=== PATIENT | female | born 1985 | race Caucasian/White ===

== ENCOUNTER 2016-11-25 07:17 | Inpatient (IN) | payer BC ==
--- NOTE | 2016-11-24 21:02 | PCM.LDHP ---
L&D History of Present Illness - General Date of Service: 11/25/16 Admit Problem/Dx: Admission Diagnosis/Problem Admission Diagnosis/Problem 11/24/16 20:43 41-0/7 weeks gestational age, elective induction of labor. Source of Information: Patient History Limitations: Reports: No limitations - History of Present Illness Introduction:: History of present illness: Valencia is a 30-year-old 1 para 0 white female who is admitted for elective induction of labor. She presently is at 41-0 /7 weeks gestational age as determined by a certain last menstrual period which started on 02/12/2016 and was supported by 3 ultrasounds dating 05/09/2016, 07/2016 and 07/29/2016. She is scheduled for Pitocin/artificial rupture membranes induction of labor. Her most recent evaluation in clinic showed her cervix to be 2+ centimeters dilated, 90% effaced, very soft, -3 station and midposition. The procedure, risks, benefits, alternatives of care including an attempt at natural onset of labor and delivery are all discussed in detail with the patient. She appears to understand as does her and they wish to proceed. History: 1 para 0. LESLEE set at 11/18/2016 as described above. Patient had menarche at age 14, cycles q. 28 days. Using control time at conception. Positive hCG was on 03/14/2016. Her course has been relatively unremarkable. First visit was at 12-1/7 weeks gestational age on 05/07/2016. She is made good fundal height growth. Vital signs have been stable throughout the course. Her weight gain has been from 131 pounds up to 150 pounds for a 27 pound weight gain. Baby has been active. early on had a choroid plexus cyst noted but this resolved with time. Her group B strep screen was positive. She desires natural labor but would be accepting of an epidural. She declined genetic evaluation. She was on control for contraception. She had an abnormal one-hour GGT but passed her 3 hour glucose tolerance test. T.dap was given on 09/24/2016. Patient has had some slightly decreased platelet but on last evaluation in clinic on 10/30/2016 they were 170. laboratory testing: Blood is O positive. Antibody screen is negative. platelets at first visit were 195. Pap smear was normal. Rubella titer shows immunity. RPR is nonreactive urine culture was negative. Hepatitis B and HIV assays were negative. Chlamydia and gonorrhea assays negative. One hour GTT was elevated at 136. Three-hour glucose tolerance test showed a fasting glucose of 86, one-hour glucose of 116, 2R glucose of 123, three-hour glucose of 77. Hemoglobin second trimester was borderline at 12.0. patient was started on iron supplementation at that time was 170. Group B strep screen was positive. Follow up platelet count 10/30. Group B strep screen was negative. Allergies: none Medications: 1. vitamins 1 by mouth daily 2. ferrous sulfate 325 mg by mouth daily Past medical history: 1. Acne Past surgical history: Unremarkable Family history : Anesthesia, bleeding, blood clotting problems noted in the family. Review of systems: Skin: Normal HEENT: Normal Cardiovascular: Normal Respiratory: Normal Breasts: Normal GI : normal Musculoskeletal/extremities: Normal Neurological: Normal Physical exam: Pregravid weight 130.2 1. Weight at last visit 158. Height is 5 feet 7. Prepregnancy BMI 20.4. Blood pressure on last evaluation in clinic 107/63. In general the patient is a well-developed, well-nourished pleasant stage distress skin is warm and dry without lesions. HEENT, neck and back within normal limits Lungs are clear, with good breath sounds in all lung [place]. Breast exam deferredPara abdomen is protuberant with fundal height of 39 cm. Cervical exam-2+ centimeters/90%/soft/-3/midposition Extremities and neurological exam within normal limits. H&P Review of Systems - Review of Systems: Review Of Systems: See Below L&D Exam - Exam Exam: See Below Problem List Initiated/Reviewed/Updated: Yes Assessment/Plan Comment:: Assessment: 1. 41-0/7 week intrauterine upon admission for elective induction of labor. 2. Group B strep screen positive. 3. Patient plans to nurse 4. Patient desires natural labor but is accepting of an epidural. 5. Tdap is up-to-date. 6. Last platelet count 10/30/2016 was 170 Plan: 1. Pitocin/artificial rupture membranes induction of labor-procedure, risks, benefits, alternatives of care including allowing natural onset of labor all discussed in detail patient. She appears to understand and wishes to proceed. 2. Group B strep prophylaxis with ampicillin 2 g initially then 1 g every 4 hours thereafter in labor. 3. Epidural when necessary 4. Patient plans to nurse-encourage nursing behavior and diet
[2016-11-25] MEDS ORDERED: Lidocaine 1% 50 ML MDV INJECT PRN (07:58)
[2016-11-25] MEDS ORDERED: Ondansetron 4 MG/2 ML SDV IVPUSH PRN (07:58)
[2016-11-25] MEDS ORDERED: Nalbuphine 20 MG/1 ML Amp IVPUSH PRN (07:58)
[2016-11-25] MEDS ORDERED: Aluminum Hydroxide/Magnesium Hydroxide/Simethicone Susp 30 ML Cup PO PRN (07:58)
[2016-11-25] MEDS ORDERED: Ampicillin 2 GM in Sodium Chloride 0.9% 100 ML IV ONE (08:00)
[2016-11-25] MEDS ORDERED: Oxytocin/Lactated Ringers 10 UNIT/1,000 ML BAG IV SCH ×2 (08:00→08:15)
[2016-11-25] MEDS: Lactated Ringers 1,000 ML IV SCH ×3 (08:25→18:07)
--- NOTE | 2016-11-25 09:44 | PCM.PREANE ---
Preanesthetic Assessment - ANESTHESIA/TRANSFUSION/FAMILY HX Anesthesia/Transfusion History: No Prior Anesthesia, No Prior Transfusion(s) Family History of Anesthesia Reaction: No - REVIEW OF SYSTEMS Constitutional: Reports: no symptoms COUNTRY DIRECTOR: Reports: no symptoms Respiratory: Reports: no symptoms Cardiovascular: Reports: no symptoms GI: Reports: no symptoms - PHYSICAL ASSESSMENT O2 Sat by Pulse Oximetry: 98 RR: 16 Vital Signs: Last Vital Signs Temp 36.2 C 11/25/16 07:58 Pulse 93 11/25/16 07:58 Resp 16 11/25/16 07:58 BP 112/76 11/25/16 07:58 Pulse Ox 98 11/25/16 07:58 Height: 1.7 m Weight: 71.985 kg NPO Status Date: 11/25/16 NPO Status Time: 07:30 ASA Class: 2 Mental Status: alert & oriented x3 Airway Class: Mallampati = 1 Dentition: Reports: normal dentition ROM/Head Extension: full Respiratory Status: lungs clear to auscultation bilaterally Cardiovascular Status: regular rate & rhythm, normal S1, S2, no murmur, blood pressure WNL - LAB Values: Laboratory Last Values WBC 7.34 K/mm3 (3.98-10.04) 11/25/16 08:09 RBC 4.23 M/mm3 (3.98-5.22) 11/25/16 08:09 Hgb 13.1 gm/L (11.2-15.7) 11/25/16 08:09 Hct 37.9 % (34.1-44.9) 11/25/16 08:09 MCV 89.6 fl (79.4-94.8) 11/25/16 08:09 MCH 31.0 pg (25.6-32.2) 11/25/16 08:09 MCHC 34.6 g/dl (32.2-35.5) 11/25/16 08:09 RDW Std Deviation 39.1 fL (36.4-46.3) 11/25/16 08:09 Plt Count 161 K/mm3 (182-369) L 11/25/16 08:09 MPV 11.8 fl (9.4-12.3) 11/25/16 08:09 Neut % (Auto) 71.9 % (34.0-71.1) H 11/25/16 08:09 Lymph % (Auto) 19.2 % (19.3-51.7) L 11/25/16 08:09 [place] % (Auto) 8.0 % (4.7-12.5) 11/25/16 08:09 Eos % (Auto) 0.4 (0.7-5.8) L 11/25/16 08:09 Baso % (Auto) 0.1 % (0.1-1.2) 11/25/16 08:09 Neut # 5.27 K/mm3 (1.56-6.13) 11/25/16 08:09 Lymph # 1.41 K/mm3 (1.18-3.74) 11/25/16 08:09 [place] # 0.59 K/mm3 (0.24-0.36) H 11/25/16 08:09 Eos # 0.03 K/mm3 (0.04-0.36) L 11/25/16 08:09 Baso # 0.01 K/mm3 (0.01-0.08) 11/25/16 08:09 - ALLERGIES Allergies/Adverse Reactions: Allergies Allergy/AdvReac Type Severity Reaction Status Date / Time No Known Allergies Allergy Verified 11/25/16 07:49 - BLOOD Blood Available: Yes Product(s) Available: PRBC - ANESTHESIA PLAN Preop Beta Анна: No Anesthesia Type Planned: epidural - ACKNOWLEDGEMENTS Pt an appropriate candidate for the planned anesthesia: Yes Alternatives and risks of anesthesia discussed w pt/guardian: Yes Pt/Guardian understands and agree with anesthesia plan: Yes PreAnesthesia Questionnaire HEENT History: Reports: None Cardiovascular History: Reports: None Respiratory History: Reports: None Gastrointestinal History: Reports: None Genitourinary History: Reports: None VAULT MECHANIC History: Reports: None Other OB/BYN History: choroid plexus cyst (resolved) Musculoskeletal History: Reports: None Neurological History: Reports: None Psychiatric History: Reports: None Endocrine/Metabolic History: Reports: None Hematologic History: Reports: None, Other (see below) Other Hematologic History: low platelets Immunologic History: Reports: None Oncologic (Cancer) History: Reports: None Dermatologic History: Reports: None, Other (see below) (acne) - Infectious Disease History Infectious Disease History: Reports: None - Past Surgical History Head Surgeries/Procedures: Reports: None - Past Imaging History Past Imaging History: Reports: None - SUBSTANCE USE Smoking Status *Q: Never Smoker Recreational Drug Use History: No - HOME MEDS Home Medications: Home Meds Ferrous Sulfate [Iron] 325 mg PO DAILY 11/25/16 [History] Vit W-Ca,Fe,FA(<1 mg) [ Vitamins] 1 tab PO DAILY 11/25/16 [ History] - CURRENT (IN HOUSE) MEDS Current Meds: Current Medications Al Hydroxide/Mg Hydroxide (Mag-Al Plus) 30 ml PO Q8H PRN PRN Reason: Heartburn Ampicillin Sodium 1 gm/ Sodium (Chloride) 100 mls @ 200 mls/hr IV Q4H JANI Lactated Ringer's (Ringers, Lactated) 1,000 mls @ 100 mls/hr IV ASDIRECTED JANI Last Admin: 11/25/16 08:25 Dose: 100 mls/hr Oxytocin/Lactated Ringer's (Pitocin In Lr 10 Units/1,000 Ml) 10 unit in 1,000 mls @ 500 mls/hr IV ASDIRECTED JANI Oxytocin/Lactated Ringer's (Pitocin In Lr 10 Units/1,000 Ml) 10 unit in 1,000 mls @ 12 mls/hr IV TITRATE JANI; 2 MUNITS/MIN PRN Reason: Protocol Last Admin: 11/25/16 08:33 Dose: 2 munits/min, 12 mls/hr Lidocaine HCl (Xylocaine 1%) 50 ml INJECT ONETIME PRN PRN Reason: perineal pain Nalbuphine HCl (Nubain) 10 mg IVPUSH Q2H PRN PRN Reason: Pain (moderate 4-6) Ondansetron HCl (Zofran) 4 mg IVPUSH Q4H PRN PRN Reason: Nausea/Vomiting Discontinued Medications Ampicillin Sodium 2 gm/ Sodium (Chloride) 100 mls @ 200 mls/hr IV ONETIME ONE Stop: 11/25/16 08:29 Last Admin: 11/25/16 08:26 Dose: 200 mls/hr
[2016-11-25] MEDS ORDERED: diphenhydrAMINE 50 MG/ML SDV IVPUSH PRN (10:31)
[2016-11-25] MEDS ORDERED: ePHEDrine 50 MG/ML SDV IVPUSH PRN (10:31)
[2016-11-25] MEDS ORDERED: fentaNYL 100 MCG/2 ML SDV EPIDUR PRN (10:31)
[2016-11-25] MEDS ORDERED: Bupivacaine/fentaNYL/NS 100 ML Bag EPIDUR SCH (10:45)
[2016-11-25] MEDS: Ampicillin 1 GM in Sodium Chloride 0.9% 100 ML IV SCH ×3 (12:22→21:56)
[2016-11-25] MEDS ORDERED: Methylergonovine 0.2 MG/1 ML Amp IM ONE (21:07)
[2016-11-25] MEDS ORDERED: Methylergonovine 0.2 MG/1 ML Amp ONE (21:18)
[2016-11-25] MEDS ORDERED: Misoprostol 200 MCG Tab ONE ×2 (21:24→21:42)
[2016-11-25] MEDS ORDERED: Methylergonovine 0.2 MG Tab PO SCH (21:30)
[2016-11-25] MEDS ORDERED: Misoprostol 200 MCG Tab PO SCH (21:30)
--- NOTE | 2016-11-25 21:49 | PCM.SN ---
- Free Text/Narrative Note: Valencia is a 30-year-old 1 now para 1001 white female who was admitted on the morning of 11/25/2016 for elective Pitocin/artificial rupture membranes induction of labor. She is 41-0/7 weeks gestational age. Procedure, risks benefits, medications, alternatives of care discussed in detail patient. She appears to understand and wish to proceed. She initially had B. strep prophylactic antibiotics in the form of ampicillin 2 g initially then 1 g IV every 4 hours for the first 2 doses and thereafter. Pitocin was started IV approximately 800 hours. This continued until 1230 hours when patient artificial rupture membranes. She progressed to complete cervical dilation. She delivered a viable, single 10, female in a left occiput anterior position at 2107 hours. The baby had Apgars of 9 and 9, at weight of 3700 grams ( 8 pounds 3 Ounces). The patient had a history laceration and a right labia majora laceration which repaired with 3-0 Monocryl suture in interrupted fashion. Patient had significant bleeding postop day which was felt to be due to uterine atony. She was treated with Pitocin IV, Methergine 0.2 mg IM and Cytotec 400 mcg orally. With this the bleeding slowed. Smear blood loss was 1000 cc. Patient plans to nurse. Condition good.
[2016-11-26] MEDS ORDERED: Lanolin 100% Cream 7 GM Tube TOP PRN (00:39)
[2016-11-26] MEDS ORDERED: Witch Hazel Medicated Pads 100/Jar TOP PRN (00:39)
[2016-11-26] MEDS ORDERED: Acetaminophen 325 MG Tab PO PRN (00:39)
[2016-11-26] MEDS ORDERED: Misoprostol 200 MCG Tab PO PRN (00:39)
[2016-11-26] MEDS ORDERED: Benzocaine/Menthol 20%-0.5% Spray 56 GM Canister TOP PRN (00:39)
[2016-11-26] MEDS: Ibuprofen 600 MG Tab PO PRN ×4 (01:32→20:15)
[2016-11-26] MEDS: Methylergonovine 0.2 MG Tab PO SCH ×3 (01:34→08:53)
[2016-11-26] MEDS: Ampicillin 1 GM in Sodium Chloride 0.9% 100 ML IV SCH (05:10)
--- NOTE | 2016-11-26 07:41 | PCM48HPAN ---
Post Anesthesia Note - EVALUATION WITHIN 48HRS OF ANESTHETIC Vital Signs in Normal Range: Yes Patient Participated in Evaluation: Yes Respiratory Function Stable: Yes Airway Patent: Yes Cardiovascular Function Stable: Yes Hydration Status Stable: Yes Pain Control Satisfactory: Yes Nausea and Vomiting Control Satisfactory: Yes (had nausea and vomiting before epidural placed, and after epidural placed, ) Mental Status Recovered: Yes - COMMENTS/OBSERVATIONS Free Text/Narrative:: Nausea resolved after delivery . Patient happy with epidural experience.
--- NOTE | 2016-11-26 09:37 | PCM.SN ---
- Free Text/Narrative Note: Patient feels good this AM. Has showered. Minimal lochia. Voiding well. Ambulating well. Afeb, VSS Abdomen-soft, NT, uterus at Umb -3. Legs NT Hb 8.9, WBC 16+ A/P: PP day one, anemia secondary to EBL after delivery. Doing well clinically. Repeat CBC in am.
[2016-11-27] MEDS: Ibuprofen 600 MG Tab PO PRN ×2 (00:23→04:18)
--- NOTE | 2016-11-27 10:03 | PCM.DCSUM1 ---
Discharge Summary - Hospital Course Free Text/Narrative:: Valencia is a 30-year-old 1 now para 1001 white female who was admitted on the morning of 11/25/2016 for elective Pitocin/artificial rupture membranes induction of labor. She is 41-0/7 weeks gestational age. Procedure, risks benefits, medications, alternatives of care discussed in detail patient. She appears to understand and wish to proceed. She initially had B. strep prophylactic antibiotics in the form of ampicillin 2 g initially then 1 g IV every 4 hours for the first 2 doses and thereafter. Pitocin was started IV approximately 800 hours. This continued until 1230 hours when patient artificial rupture membranes. She progressed to complete cervical dilation. She delivered a viable, single 10, female in a left occiput anterior position at 2107 hours. The baby had Apgars of 9 and 9, at weight of 3700 grams ( 8 pounds 3 Ounces). The patient had a history laceration and a right labia majora laceration which repaired with 3-0 Monocryl suture in interrupted fashion. Patient had significant bleeding postop day which was felt to be due to uterine atony. She was treated with Pitocin IV, Methergine 0.2 mg IM and Cytotec 400 mcg orally. With this the bleeding slowed. Smear blood loss was 1000 cc. Patient plans to nurse. patient has done very well. Her hemoglobin did drop to 7.9 and then to 7.0. Her white count went from 16 down to 9. She's doing well clinically. She is ambulating well, feels fine. Has minimal lochia. Is nursing without problems. She desires discharge. - Discharge Data Discharge Date: 11/27/16 Discharge Disposition: DC/Tfer to Inpt Rehab Fac 62 Condition: Good - Patient Instructions Diet: Regular Diet as Tolerated (Nursing diet was increased calcium and calories as directed. Increased iron because of the anemia.) Activity: As Tolerated (No intercourse or tampons until bleeding resolves.) Driving: May Drive Today Showering/Bathing: May Shower (May take a bath) Notify Provider of: Fever, Increased Pain, Swelling and Redness, Nausea and/or Vomiting - Discharge Plan Home Medications: Home Meds Vit W-Ca,Fe,FA(<1 mg) [ Vitamins] 1 tab PO DAILY 11/25/16 [ History] Ferrous Sulfate [Iron] 325 mg PO TID #100 11/27/16 [Rx] Ibuprofen [IJD: Ibuprofen] 600 mg PO Q4H PRN #30 tablet 11/27/16 [Rx] Referrals: Patrick Sahu MD [Primary Care Provider] - (Return to clinic-Dr. Sahu-6 weeks-[facility] - Discharge Summary/Plan Comment DC Time >30 min.: No Discharge Summary/Plan Comment: Discharge instructions: 1. Discharge 2. Regular, high fiber, high iron nursing diet was increased calcium, calories and iron. Activity and followup discussed in detail patient. Especially discussed is possible need for limitations of activity because of anemia. She is asked to push fluids at least initially. 3. Precautions given concern increased pain, bleeding, temperature, sign/ symptoms of DVT/PE, signs of worsening anemia. 4. Medications medication as printed, and discussed with and given to the patient. 5. Return to clinic-Dr. Sahu-6 weeks-[facility]. Diagnosis: 1. 41-0/7 week intrauterine -delivered 2. Post hemorrhage with resultant acute blood loss anemia Condition: Good - Patient Data Vitals - Most Recent: Last Vital Signs Temp 36.6 C 11/27/16 07:49 Pulse 85 11/27/16 07:49 Resp 16 11/27/16 07:49 BP 102/66 11/27/16 07:49 Pulse Ox 99 11/27/16 07:49 Weight - Most Recent: 71.985 kg I&O - Last 24 hours: Intake & Output 11/26/16 11/27/16 11/27/16 22:59 06:59 14:59 Intake Total 360 Balance 360 Lab Results - Last 24 hrs: Laboratory Results - last 24 hr 11/27/16 Range/Units 06:47 WBC 9.14 (3.98-10.04) K/mm3 RBC 2.25 L (3.98-5.22) M/mm3 Hgb 7.0 L* (11.2-15.7) gm/L Hct 21.1 L (34.1-44.9) % MCV 93.8 (79.4-94.8) fl MCH 31.1 (25.6-32.2) pg MCHC 33.2 (32.2-35.5) g/dl RDW Std Deviation 39.5 (36.4-46.3) fL Plt Count 132 L (182-369) K/mm3 MPV 11.1 (9.4-12.3) fl Neut % (Auto) 75.6 H (34.0-71.1) % Lymph % (Auto) 16.3 L (19.3-51.7) % [place] % (Auto) 7.2 (4.7-12.5) % Eos % (Auto) 0.3 L (0.7-5.8) Baso % (Auto) 0.1 (0.1-1.2) % Neut # 6.90 H (1.56-6.13) K/mm3 Lymph # 1.49 (1.18-3.74) K/mm3 [place] # 0.66 H (0.24-0.36) K/mm3 Eos # 0.03 L (0.04-0.36) K/mm3 Baso # 0.01 (0.01-0.08) K/mm3 Manual Slide Review Abnormal smear Med Orders - Current: Current Medications Acetaminophen (Tylenol) 650 mg PO Q4H PRN PRN Reason: mild pain or fever Benzocaine/Menthol (Dermoplast Pain Relief [place]) 0 gm TOP ASDIRECTED PRN PRN Reason: Perineal Comfort Measure Last Admin: 11/26/16 01:35 Dose: 1 applic Emollient Ointment (Lansinoh Hpa) 0 gm TOP ASDIRECTED PRN PRN Reason: Sore Nipples Last Admin: 11/26/16 05:24 Dose: 1 tube Ibuprofen (Motrin) 600 mg PO Q4H PRN PRN Reason: Mild pain or fever Last Admin: 11/27/16 04:18 Dose: 600 mg Misoprostol (Cytotec) 400 mcg PO Q4H PRN PRN Reason: excessive vaginal bleeding Witch Sophie (Tucks) 1 pad TOP ASDIRECTED PRN PRN Reason: Hemorrhoid pain Last Admin: 11/26/16 01:34 Dose: 1 applic Discontinued Medications Al Hydroxide/Mg Hydroxide (Mag-Al Plus) 30 ml PO Q8H PRN PRN Reason: Heartburn Diphenhydramine HCl (Benadryl) 25 mg IVPUSH Q6H PRN PRN Reason: pruritis Ephedrine Sulfate (Ephedrine Sulfate) 5 mg IVPUSH ASDIRECTED PRN PRN Reason: Hypotension Fentanyl (Sublimaze) 100 mcg EPIDUR Q3H PRN PRN Reason: Pain Last Admin: 11/25/16 15:24 Dose: 100 mcg Fentanyl/Bupivacaine HCl (Fentanyl/Bupivacaine/Ns 2 Mcg-0.125% 100 Ml) 100 ml EPIDUR ASDIRECTED [facility] Last Admin: 11/25/16 15:25 Dose: 100 ml Ampicillin Sodium 2 gm/ Sodium (Chloride) 100 mls @ 200 mls/hr IV ONETIME ONE Stop: 11/25/16 08:29 Last Admin: 11/25/16 08:26 Dose: 200 mls/hr Ampicillin Sodium 1 gm/ Sodium (Chloride) 100 mls @ 200 mls/hr IV Q4H [facility] Last Admin: 11/26/16 05:10 Dose: Not Given Lactated Ringer's (Ringers, Lactated) 1,000 mls @ 100 mls/hr IV ASDIRECTED [facility] Last Admin: 11/25/16 18:07 Dose: 100 mls/hr Oxytocin/Lactated Ringer's (Pitocin In Lr 10 Units/1,000 Ml) 10 unit in 1,000 mls @ 500 mls/hr IV ASDIRECTED [facility] Last Admin: 11/25/16 21:07 Dose: 500 mls/hr Oxytocin/Lactated Ringer's (Pitocin In Lr 10 Units/1,000 Ml) 10 unit in 1,000 mls @ 12 mls/hr IV TITRATE JANI; 2 MUNITS/MIN PRN Reason: Protocol Last Titration: 11/25/16 21:00 Dose: 10 munits/min, 60 mls/hr Lidocaine HCl (Xylocaine 1%) 50 ml INJECT ONETIME PRN PRN Reason: perineal pain Methylergonovine Maleate (Methergine) Confirm Administered Dose 0.2 mg .ROUTE .STK-MED ONE Stop: 11/25/16 21:19 Last Admin: 11/25/16 22:35 Dose: Not Given Methylergonovine Maleate (Methergine) 0.2 mg IM ONETIME ONE Stop: 11/25/16 21:08 Last Admin: 11/25/16 22:34 Dose: 0.2 mg Methylergonovine Maleate (Methergine) 400 mg PO Q4HR [facility] Stop: 11/26/16 09:00 Last Admin: 11/26/16 00:46 Dose: Not Given Methylergonovine Maleate (Methergine) 0.4 mg PO Q4HR [facility] Stop: 11/26/16 09:00 Last Admin: 11/26/16 08:53 Dose: 0.4 mg Misoprostol (Cytotec) Confirm Administered Dose 200 mcg .ROUTE .STK-MED ONE Stop: 11/25/16 21:25 Last Admin: 11/25/16 22:35 Dose: Not Given Misoprostol (Cytotec) Confirm Administered Dose 400 mcg .ROUTE .STK-MED ONE Stop: 11/25/16 21:43 Last Admin: 11/25/16 22:38 Dose: Not Given Misoprostol (Cytotec) 200 mcg PO Q4HR [facility] Stop: 11/26/16 09:00 Last Admin: 11/25/16 22:35 Dose: 200 mcg Nalbuphine HCl (Nubain) 10 mg IVPUSH Q2H PRN PRN Reason: Pain (moderate 4-6) Ondansetron HCl (Zofran) 4 mg IVPUSH Q4H PRN PRN Reason: Nausea/Vomiting Last Admin: 11/26/16 00:00 Dose: 4 mg *Q Meaningful Use (DIS) - VTE *Q VTE Criteria *Q: - Stroke *Q Stroke Criteria *Q: - AMI *Q AMI Criteria *Q:
[2016-11-27 12:17] VITALS: BP 102/64
== END 2016-11-27 14:05 | DRG 560 ==
LOC: JD.OB 07:17 → OBSVTOIN 21:07 → JD.OB 21:07
PROVIDERS: ADMIT Obstetrics & Gynecology; ATTEND Obstetrics & Gynecology
PROC: 10E0XZZ Delivery of Products of Conception, External Approach (ICD-10-PCS; principal; 2016-11-25)
PROC: 0UQMXZZ Repair Vulva, External Approach (ICD-10-PCS; 2016-11-25)
PROC: 10907ZC Drainage of Amniotic Fluid, Therapeutic from Products of Conception, Via Natural or Artificial Opening (ICD-10-PCS; 2016-11-25)
PROC: 00HU33Z Insertion of Infusion Device into Spinal Canal, Percutaneous Approach (ICD-10-PCS; 2016-11-25)
PROC: 3E0R3CZ (ICD-10-PCS; 2016-11-25)
DX: O99.824 Streptococcus B carrier state complicating childbirth (principal); Z3A.41 41 weeks gestation of pregnancy; Z37.0 Single live birth; O70.0 First degree perineal laceration during delivery
CPT/HCPCS: 01967; 36415; 85025; 85027; A9270-GY; J0290; J2210; J2405; J2590; J3010; J7030; J7120

== ENCOUNTER 2019-10-31 18:29 | Inpatient (IN) | payer BC ==
--- NOTE | 2019-10-31 20:49 | PCM.LDHP ---
L&D History of Present Illness - General Date of Service: 11/01/19 Admit Problem/Dx: Admission Diagnosis/Problem Admission Diagnosis/Problem 10/31/19 20:40 Valencia is a 33-year-old 2 para 1001 white female who is to be admitted on the a.m. of 11/01/2019 at 39-6/7 weeks gestational age with an LESLEE of 2019 for elective induction of labor. Source of Information: Patient History Limitations: Reports: No Limitations - History of Present Illness Introduction:: Valencia is a 33-year-old 2 para 1001 white female who is to be admitted on the a.m. of 11/01/2019 at 39-6/7 weeks gestational age with an LESLEE of 2019 for elective induction of labor.Injure of labor, its risks, benefits and alternatives including allowing for natural onset of labor all discussed with patient. She appears to understand and wishes to proceed. ENVIRONMENTAL CONFLICT MANAGER history: Patient is a 2 para 1001 her LESLEE of 11/02/2019 was set by an uncertain last menstrual starting 01/26/2019 but supported by an early ultrasound done 07/12/2019. Patient had menarche at age 14, cycles occurred every 28 days. LMP 01/26/2019 was uncertain. Her past obstetric history includes the followin. Female born 11/25/2015 at 41 weeks gestational age after 14 hours of labor. Patient had a normal spontaneous vaginal delivery. She is not epidural for labor and analgesia. Child's name is Zhanna Lew course: Patient was seen in our clinic for the first time on 06/08/2019 at 19 weeks gestational age. She was seen on a very regular basis since that time. Her pregravid weight was reported as 143 pounds. At the end of the she was 165 pounds for a 22 pound weight gain. She desires an epidural in labor and delivery. She is group B strep negative. Her [place] depression screening score on 06/08/2019 was 2/30. Patient has a history of uterine atony with her last . She plans to breast -feed. She has a history of thrombocytopenia. This however was not within during the course of her care. Laboratory testing and shows her first labs 2 positive blood with negative MRI screening. Hemoglobin at that first visit was 12.2 g/dL. Platelets are 185,000. She is rubella immune. Urine culture was negative after 2 days. Second trimester laboratory testing showed a hemoglobin 11.7 g/dL at which time she was started on ferrous sulfate 325 mg by mouth daily. Labs at that time were 186,000 and her 1 hour GTT was 99. The strep screen is negative. RPR done 08/04/2019 was nonreactive. Allergies: None Medications: 1. vitamins daily 2. Ferrous sulfate 325 mg daily. Past medical history: 1. Normal spontaneous vaginal delivery 11/25/2016. 2. Acne Past surgical history: Unremarkable Family history: There appears to be no family history for any bleeding, blood clotting, anesthesia, related problems. Social history patient is . is Jorge Marie. She lives in [place], [place]. She does not use any significant loss of alcohol, drugs or tobacco. Review of systems: In general patient has no complaints. Baby has been active. Skin: Negative Lungs: No infectious symptoms or shortness of breath Cardiovascular: No chest pain or exercise intolerance Breasts: No lumps, changes in size, pain, dimpling, discharge or axillary or supraclavicular concerns. GI: Negative : Some contractions or being noted. Musculoskeletal: Negative Neurological: Negative In general the patient is well-developed, well-nourished, pleasant female of stated age in no acute distress. On last evaluation in clinic her blood pressure was 108/70. Weight was 165 pounds. Pregravid weight was reported at 143 pounds. Height is 5 feet 7 inches. Prepregnancy body mass index is 20.7. heart rate was 128. Skin is warm dry without lesions. HEENT, neck and back within normal limits. Lungs are clear with good breath sounds in all lung [place]. Cardiovascular exam shows regular and rhythm without murmurs. Breasts exam is deferred having been done at first visit found to be normal. Patient does plan to breast-feed. Abdomen is gravid. Baby is in a vertex presentation. Genital digital exam on last evaluation clinic3 cm, 80% effaced, very soft, mid position, -3.. Extremities and neurological exam are grossly within normal limits. - Related Data Allergies/Adverse Reactions: Allergies Allergy/AdvReac Type Severity Reaction Status Date / Time No Known Allergies Allergy Verified 11/25/16 07:49 Home Medications: Home Meds Vit Calc,Iron,Folic [ Vitamins] 1 tab PO DAILY 11/25/16 [ History] Ferrous Sulfate [Iron] 325 mg PO TID #100 11/27/16 [Rx] Ibuprofen [IJD: Ibuprofen] 600 mg PO Q4H PRN #30 tablet 11/27/16 [Rx] Past Medical History HEENT History: Reports: None Cardiovascular History: Reports: None Respiratory History: Reports: None Gastrointestinal History: Reports: None Genitourinary History: Reports: None ENVIRONMENTAL CONFLICT MANAGER History: Reports: None Other OB/BYN History: choroid plexus cyst (resolved) Musculoskeletal History: Reports: None Neurological History: Reports: None Psychiatric History: Reports: None Endocrine/Metabolic History: Reports: None Hematologic History: Reports: None, Other (See Below) Other Hematologic History: low platelets Immunologic History: Reports: None Oncologic (Cancer) History: Reports: None Dermatologic History: Reports: None, Other (See Below) - Infectious Disease History Infectious Disease History: Reports: None - Past Surgical History Head Surgeries/Procedures: Reports: None - Past Imaging History Past Imaging History: Reports: None Social & Family History - Family History Family Medical History: Noncontributory - Caffeine Use Caffeine Use: Reports: Coffee H&P Review of Systems - Review of Systems: Review Of Systems: See Below L&D Exam - Exam Exam: See Below Problem List Initiated/Reviewed/Updated: Yes Assessment/Plan Comment:: 1. 39-6/7 week intrauterine upon admission for elective induction of labor. 2. Risk factors for the include group B strep negative status history of uterine atony. 3. Patient desires epidural in labor for analgesia 4. Patient plans to breast-feed 5. Influenza vaccine given 07/04/2019 6. T dap given on 08/30/2019 7. Patient is rubella immune. Plan: 1. Artificial rupture membranes induction with possible Pitocin augmentation. Discussed with patient and improved. 2. Epidural for pain control. 3. Support breast-feeding decision 4. RPR and CBC upon admission
[2019-11-01] MEDS ORDERED: Bupivacaine 0.25% 10 ML SDV ONE
[2019-11-01] MEDS ORDERED: Sodium Chloride 0.9% 10 ML Syringe FLUSH PRN (07:48)
[2019-11-01] MEDS ORDERED: Ondansetron 4 MG/2 ML SDV IVPUSH PRN (07:48)
[2019-11-01] MEDS ORDERED: Oxytocin/Lactated Ringers 10 UNIT/1,000 ML BAG IV SCH ×2 (08:00→14:30)
[2019-11-01] MEDS ORDERED: ePHEDrine 50 MG/ML SDV IVPUSH PRN (09:31)
[2019-11-01] MEDS ORDERED: Bupivacaine/fentaNYL/NS 100 ML Bag EPIDUR PRN (09:31)
[2019-11-01] MEDS ORDERED: fentaNYL 100 MCG/2 ML SDV EPIDUR PRN (09:31)
[2019-11-01] MEDS ORDERED: diphenhydrAMINE 50 MG/ML SDV IVPUSH PRN (09:31)
--- NOTE | 2019-11-01 13:15 | PCM.PREANE ---
Preanesthetic Assessment - Procedure Proposed Procedure: prem - Anesthesia/Transfusion/Family Hx Anesthesia History: No Prior Anesthesia Family History of Anesthesia Reaction: No Transfusion History: No Prior Transfusion(s) - Review of Systems General: No Symptoms Pulmonary: No Symptoms Cardiovascular: No Symptoms Gastrointestinal: No Symptoms Neurological: No Symptoms Other: Reports: None - Physical Assessment Vital Signs: Last Vital Signs Temp 97.9 F 11/01/19 11:00 Pulse 71 11/01/19 11:00 Resp 18 11/01/19 11:00 BP 105/65 11/01/19 11:00 Pulse Ox 100 11/01/19 11:00 Height: 5 ft 7 in Weight: 75.614 kg ASA Class: 2 Mental Status: Alert & Oriented x3 Airway Class: Mallampati = 1 Dentition: Reports: Normal Dentition Thyro-Mental Finger Breadths: 3 Mouth Opening Finger Breadths: 3 ROM/Head Extension: Full Lungs: Clear to Auscultation, Normal Respiratory Effort Cardiovascular: Regular Rate, Regular Rhythm, No Murmurs - Lab Values: Laboratory Last Values WBC 8.78 K/mm3 (3.98-10.04) 11/01/19 08:00 RBC 3.92 M/mm3 (3.98-5.22) L 11/01/19 08:00 Hgb 12.0 gm/dl (11.2-15.7) 11/01/19 08:00 Hct 35.8 % (34.1-44.9) 11/01/19 08:00 MCV 91.3 fl (79.4-94.8) 11/01/19 08:00 MCH 30.6 pg (25.6-32.2) 11/01/19 08:00 MCHC 33.5 g/dl (32.2-35.5) 11/01/19 08:00 RDW Std Deviation 39.8 fL (36.4-46.3) 11/01/19 08:00 Plt Count 158 K/mm3 (182-369) L 11/01/19 08:00 MPV 11.8 fl (9.4-12.3) 11/01/19 08:00 Neut % (Auto) 77.0 % (34.0-71.1) H 11/01/19 08:00 Lymph % (Auto) 13.7 % (19.3-51.7) L 11/01/19 08:00 [place] % (Auto) 8.4 % (4.7-12.5) 11/01/19 08:00 Eos % (Auto) 0.5 (0.7-5.8) L 11/01/19 08:00 Baso % (Auto) 0.1 % (0.1-1.2) 11/01/19 08:00 Neut # (Auto) 6.76 K/mm3 (1.56-6.13) H 11/01/19 08:00 Lymph # (Auto) 1.20 K/mm3 (1.18-3.74) 11/01/19 08:00 [place] # (Auto) 0.74 K/mm3 (0.24-0.36) H 11/01/19 08:00 Eos # (Auto) 0.04 K/mm3 (0.04-0.36) 11/01/19 08:00 Baso # (Auto) 0.01 K/mm3 (0.01-0.08) 11/01/19 08:00 - Allergies Allergies/Adverse Reactions: Allergies Allergy/AdvReac Type Severity Reaction Status Date / Time No Known Allergies Allergy Verified 11/01/19 07:48 - Blood Blood Available: No - Acknowledgements Anesthesia Type Planned: Epidural Pt an Appropriate Candidate for the Planned Anesthesia: Yes Alternatives and Risks of Anesthesia Discussed w Pt/Guardian: Yes Pt/Guardian Understands and Agrees with Anesthesia Plan: Yes PreAnesthesia Questionnaire HEENT History: Reports: None Cardiovascular History: Reports: None Respiratory History: Reports: None Gastrointestinal History: Reports: None Genitourinary History: Reports: None DICE TABLE PERSON History: Reports: None : 2 (40 weeks) Para: 1 Other OB/BYN History: choroid plexus cyst (resolved) Musculoskeletal History: Reports: None Neurological History: Reports: None Psychiatric History: Reports: None Endocrine/Metabolic History: Reports: None Hematologic History: Reports: None, Other (See Below) Other Hematologic History: low platelets Immunologic History: Reports: None Oncologic (Cancer) History: Reports: None Dermatologic History: Reports: Other (See Below) - Infectious Disease History Infectious Disease History: Reports: None - Past Surgical History Head Surgeries/Procedures: Reports: None - Past Imaging History Past Imaging History: Reports: None - SUBSTANCE USE Smoking Status *Q: Never Smoker Tobacco Use Within Last Twelve Months: No Second Hand Smoke Exposure: No Days Per Week of Alcohol Use: 0 Recreational Drug Use History: No - HOME MEDS Home Medications: Home Meds Vit Calc,Iron,Folic [ Vitamins] 1 tab PO DAILY 11/25/16 [ History] Ferrous Sulfate [Iron] 325 mg PO TID #100 11/27/16 [Rx] Ibuprofen [IJD: Ibuprofen] 600 mg PO Q4H PRN #30 tablet 11/27/16 [Rx] - CURRENT (IN HOUSE) MEDS Current Meds: Current Medications Diphenhydramine HCl (Benadryl) 25 mg IVPUSH Q6H PRN PRN Reason: pruritis Ephedrine Sulfate (Ephedrine Sulfate) 5 mg IVPUSH ASDIRECTED PRN PRN Reason: Hypotension Fentanyl (Sublimaze) 100 mcg EPIDUR Q3H PRN PRN Reason: Pain Fentanyl/Bupivacaine HCl (Fentanyl/Bupivacaine/Ns 2 Mcg-0.125% 100 Ml) 100 ml EPIDUR ASDIRECTED PRN PRN Reason: Pain Lactated Ringer's (Ringers, Lactated) 1,000 mls @ 100 mls/hr IV ASDIRECTED JANI Oxytocin/Lactated Ringer's (Pitocin In Lr 10 Units/1,000 Ml) 10 unit in 1,000 mls @ 500 mls/hr IV .CONTINUOUS JANI Ondansetron HCl (Zofran) 4 mg IVPUSH Q4H PRN PRN Reason: Nausea/Vomiting Sodium Chloride (Saline Flush) 10 ml FLUSH ASDIRECTED PRN PRN Reason: Keep Vein Open
[2019-11-01] MEDS: Lactated Ringers 1,000 ML IV SCH ×2 (14:45→16:50)
[2019-11-01] MEDS ORDERED: Benzocaine/Menthol 20%-0.5% Spray 56 GM Canister TOP PRN (17:59)
--- NOTE | 2019-11-01 18:05 | PCM.SN ---
- Free Text/Narrative Note: Delivery note: Valencia is a 33-year-old 2 para 1001 white female who is to be admitted on the a.m. of 11/01/2019 at 39-6/7 weeks gestational age with an LESLEE of 2019 for elective induction of labor. She is induced with artificial rupture membranes with resultant clear amniotic fluid. She progressed rapidly through labor. She underwent epidural for labor and analgesia. At approximately 1735 hours patient was found to be completely dilated. Patient pushed 1 contraction and delivered a viable, dotson, male infant with Apgars of 8 and 9, a weight of 3470 g (7 pounds 10.4 ounces), a length of 21.0 inches in a left occiput anterior position at 1738 hrs. on 11/01/2019.. The baby was placed on mom's abdomen. Cord was allowed to pulsate times approximately 2 minutes and then was clamped 2 and cut by the baby's father Jorge. After the baby was delivered IV Pitocin was run at a rate of 500 mL an hour to facilitate increase in uterine tone and decrease likelihood of bleeding. Cord was obtained. The umbilical cord had 3 vessels within it. The placenta then delivered in a [place] presentation, appeared intact and complete and was discarded per patient desire. The perineum was intact and no suturing was required. The patient plans to breast-feed. Estimated blood loss was 200 mL. Condition: Good.
[2019-11-01] MEDS ORDERED: Docusate Sodium 100 MG Cap PO PRN (18:51)
[2019-11-01] MEDS ORDERED: Acetaminophen 325 MG Tab PO PRN (18:51)
[2019-11-01] MEDS: Ibuprofen 600 MG Tab PO PRN (21:42)
[2019-11-01] MEDS: Witch Hazel Medicated Pads 40/Jar TOP PRN (21:43)
[2019-11-02] MEDS: Ibuprofen 600 MG Tab PO PRN ×2 (08:50→14:43)
--- NOTE | 2019-11-02 09:29 | PCM.DCSUM1 ---
Discharge Summary - Hospital Course Free Text/Narrative:: Valencia is a 33-year-old 2 para 1001 white female who is to be admitted on the a.m. of 11/01/2019 at 39-6/7 weeks gestational age with an LESLEE of 2019 for elective induction of labor. She is induced with artificial rupture membranes with resultant clear amniotic fluid. She progressed rapidly through labor. She underwent epidural for labor and analgesia. At approximately 1735 hours patient was found to be completely dilated. Patient pushed 1 contraction and delivered a viable, dotson, male infant with Apgars of 8 and 9, a weight of 3470 g (7 pounds 10.4 ounces), a length of 21.0 inches in a left occiput anterior position at 1738 hrs. on 11/01/2019.. The baby was placed on mom's abdomen. Cord was allowed to pulsate times approximately 2 minutes and then was clamped 2 and cut by the baby's father Jorge. After the baby was delivered IV Pitocin was run at a rate of 500 mL an hour to facilitate increase in uterine tone and decrease likelihood of bleeding. Cord was obtained. The umbilical cord had 3 vessels within it. The placenta then delivered in a [place] presentation, appeared intact and complete and was discarded per patient desire. The perineum was intact and no suturing was required. The patient plans to breast-feed. Estimated blood loss was 200 mL. patient is done well. She is not having any significant bleeding. She has more cramps and with her first delivery. She is taking ibuprofen for this. She is voiding well and is amblyopic without concerns. She desires discharge home. Condition: Good. Diagnosis: Stroke: No - Discharge Data Discharge Date: 11/02/19 Discharge Disposition: Home, Self-Care 01 Condition: Good - Referral to Home Health Primary Care Physician: Patrick Sahu MD - Patient Instructions Diet: Regular Diet as Tolerated (Nursing times increase calories calcium as recommended) Activity: As Tolerated (No intercourse or tampons until bleeding resolves) Driving: May Drive Today Showering/Bathing: May Shower (May take a bath) Notify Provider of: Fever, Increased Pain, Swelling and Redness, Nausea and/or Vomiting - Discharge Plan Home Medications: Home Meds Vit Calc,Iron,Folic [ Vitamins] 1 tab PO DAILY 11/25/16 [ History] Ferrous Sulfate [Iron] 325 mg PO TID #100 11/27/16 [Rx] Ibuprofen [IJD: Ibuprofen] 600 mg PO Q4H PRN #30 tablet 11/27/16 [Rx] Acetaminophen [Tylenol] 650 mg PO Q4H PRN tablet 11/02/19 [Rx] Ibuprofen [Motrin] 600 mg PO Q4H PRN tablet 11/02/19 [Rx] Referrals: Patrick Sahu MD [Primary Care Provider] - (Return to clinicDr. Luis Alberto gregorio, nurse practitioner in 2-3 weeks.) - Discharge Summary/Plan Comment DC Time >30 min.: No Discharge Summary/Plan Comment: Discharge instructions: 1. Discharge home 2. Diet, activity and follow-up discussed with patient. Recommend nursing diet with increased calories and calcium. 3. Precautions given concern increased pain, bleeding, temperature, signs/ symptoms of DVT/PE. 4. Medications per home medication was printed, discussed with and given to the patient. 5. Return to clinic-Dr. Sahu or [facility] Diagnosis: Term -delivered Condition: Good - Patient Data Vitals - Most Recent: Last Vital Signs Temp 36.8 C 11/02/19 03:32 Pulse 94 11/02/19 08:46 Resp 16 11/02/19 08:46 BP 111/78 11/02/19 08:46 Pulse Ox 100 11/02/19 08:46 Weight - Most Recent: 75.614 kg I&O - Last 24 hours: Intake & Output 11/01/19 11/02/19 11/02/19 22:59 06:59 14:59 Intake Total 2150 1000 Output Total 35 Balance 2115 1000 Lab Results - Last 24 hrs: Laboratory Results - last 24 hr 11/01/19 11/01/19 Range/Units 08:00 08:00 RPR Non-reactive (NONREACTIVE) Hep Bs Antigen Nonreactive (NONREACTIVE) Med Orders - Current: Current Medications Acetaminophen (Tylenol) 650 mg PO Q4H PRN PRN Reason: mild pain or fever Benzocaine/Menthol (Dermoplast Pain Relief [place]) 0 gm TOP ASDIRECTED PRN PRN Reason: Perineal Comfort Measure Last Admin: 11/01/19 21:43 Dose: 1 can Docusate Sodium (Colace) 100 mg PO BID PRN PRN Reason: Constipation Last Admin: 11/02/19 08:50 Dose: 100 mg Ibuprofen (Motrin) 600 mg PO Q4H PRN PRN Reason: Mild pain or fever Last Admin: 11/02/19 08:50 Dose: 600 mg Witch Sophie (Tucks) 1 pad TOP ASDIRECTED PRN PRN Reason: Pain Last Admin: 11/01/19 21:43 Dose: 1 box Discontinued Medications Bupivacaine HCl (Sensorcaine-Mpf 0.25%) 10 ml .ROUTE .K-MED ONE Stop: 11/01/19 00:01 Diphenhydramine HCl (Benadryl) 25 mg IVPUSH Q6H PRN PRN Reason: pruritis Ephedrine Sulfate (Ephedrine Sulfate) 5 mg IVPUSH ASDIRECTED PRN PRN Reason: Hypotension Fentanyl (Sublimaze) 100 mcg EPIDUR Q3H PRN PRN Reason: Pain Last Admin: 11/01/19 15:03 Dose: 100 mcg Fentanyl/Bupivacaine HCl (Fentanyl/Bupivacaine/Ns 2 Mcg-0.125% 100 Ml) 100 ml EPIDUR ASDIRECTED PRN PRN Reason: Pain Last Admin: 11/01/19 15:03 Dose: 100 ml Lactated Ringer's (Ringers, Lactated) 1,000 mls @ 100 mls/hr IV ASDIRECTED JANI Last Admin: 11/01/19 16:50 Dose: 100 mls/hr Oxytocin/Lactated Ringer's (Pitocin In Lr 10 Units/1,000 Ml) 10 unit in 1,000 mls @ 500 mls/hr IV .CONTINUOUS JANI Oxytocin/Lactated Ringer's (Pitocin In Lr 10 Units/1,000 Ml) 10 unit in 1,000 mls @ 12 mls/hr IV TITRATE JANI; Protocol Last Titration: 11/01/19 17:40 Dose: 500 mls/hr Ondansetron HCl (Zofran) 4 mg IVPUSH Q4H PRN PRN Reason: Nausea/Vomiting Sodium Chloride (Saline Flush) 10 ml FLUSH ASDIRECTED PRN PRN Reason: Keep Vein Open
--- NOTE | 2019-11-02 11:55 | PCM48HPAN ---
Post Anesthesia Note - EVALUATION WITHIN 48HRS OF ANESTHETIC Vital Signs in Normal Range: Yes Patient Participated in Evaluation: Yes Respiratory Function Stable: Yes Airway Patent: Yes Cardiovascular Function Stable: Yes Hydration Status Stable: Yes Pain Control Satisfactory: Yes Nausea and Vomiting Control Satisfactory: Yes Mental Status Recovered: Yes Vital Signs: Last Vital Signs Temp 36.8 C 11/02/19 03:32 Pulse 94 11/02/19 08:46 Resp 16 11/02/19 08:46 BP 111/78 11/02/19 08:46 Pulse Ox 100 11/02/19 08:46
[2019-11-02] MEDS: Witch Hazel Medicated Pads 40/Jar TOP PRN (13:38)
[2019-11-02 15:03] VITALS: BP 115/72; PULSE 96
== END 2019-11-02 18:15 | disposition home or self-care (01) | DRG 560 ==
LOC: JD.OB 11-01 07:15 → OBSVTOIN 11-01 17:37 → JD.OB 11-01 17:37
PROVIDERS: ADMIT Obstetrics & Gynecology; ATTEND Obstetrics & Gynecology
PROC: 10E0XZZ Delivery of Products of Conception, External Approach (ICD-10-PCS; principal; 2019-11-01)
PROC: 3E0R3BZ Introduction of Anesthetic Agent into Spinal Canal, Percutaneous Approach (ICD-10-PCS; 2019-11-01)
PROC: 10907ZC Drainage of Amniotic Fluid, Therapeutic from Products of Conception, Via Natural or Artificial Opening (ICD-10-PCS; 2019-11-01)
DX: O80 Encounter for full-term uncomplicated delivery (principal); Z3A.39 39 weeks gestation of pregnancy; Z37.0 Single live birth; Z79.899 Other long term (current) drug therapy
CPT/HCPCS: 01967; 36415; 51702; 59025; 59409; 85025; 86592; 87340; A9270-GY; J2590; J3010; J3490; J7120